=== PATIENT | female | born 1975 | race Caucasian/White ===

== ENCOUNTER 2022-01-06 10:18 | Emergency (ER) | payer SELFPAY ==
[2022-01-06] MEDS ORDERED: Ibuprofen 600 MG TAB ONE (11:33)
[2022-01-06] MEDS ORDERED: Acetaminophen 500 MG TAB ONE (11:34)
[2022-01-06] MEDS ORDERED: HYDROcodone/Acetaminophen 5/325 mg Tablet ONE (11:54)
== END 2022-01-06 12:00 | disposition home or self-care (01) ==
LOC: MADERS 10:18
DX: S63.502A Unspecified sprain of left wrist, initial encounter (principal); M79.89 Other specified soft tissue disorders; E03.9 Hypothyroidism, unspecified; Z79.899 Other long term (current) drug therapy; X50.9XXA Other and unspecified overexertion or strenuous movements or postures, initial encounter

== ENCOUNTER 2024-11-12 17:03 | Emergency (ER) | payer OTHER, SELFPAY ==
[2024-11-12 17:28] LABS: Bilirubin Negative (Negative); Blood, Urine Large (Negative); Glucose, Urine (Dipstick) Negative (Negative); Ketone, Urine Negative (Negative); Leukocyte Small (Negative); Nitrite Negative (Negative); Protein, Urine (Dipstick) 30 mg/dL (Neg-Trace); Specific Gravity, Urine 1.015 (1.005-1.030); Urobilinogen 0.2 mg/dL (Less than 2); pH, Urine 5.5 (5.0-9.0)
[2024-11-12] MEDS ORDERED: Ketorolac Tromethamine 30 MG (1 mL) VIAL ONE (17:28)
[2024-11-12 17:32] LABS: Clarity Hazy (Clear)
[2024-11-12 17:37] LABS: Bacteria/HPF 2+ HPF (None Seen); CAUTI Indications for Culture Pelvic or flank pain; RBC/HPF Greater than 50 HPF (0-3); Squamous Epithelial 0-3 HPF (0-3); WBC/HPF 21-50 HPF (0-3)
[2024-11-12] MEDS ORDERED: Ondansetron PF 4 MG/2 ML Vial ONE (17:37)
[2024-11-12] MEDS ORDERED: Morphine 4 MG/ML VIAL ONE ×3 (17:37→23:13)
[2024-11-12] MEDS ORDERED: Morphine 2 MG/ML VIAL ONE (17:37)
[2024-11-12 17:38] LABS: Urine Culture Reflex Yes Yes
[2024-11-12 17:50] LABS: Pregnancy Test - Urine (BHCG) Negative (Negative); Pregu Control Background? CLEAR/WHITE (CLR/WHITE); Pregu Control Bar Appear? YES (CONTROL BAR); Specific Gravity 1.015 (1.002-1.036)
[2024-11-12 17:57] LABS: #Basophils 0.1 thou/uL (0.0-0.2); #Eosinophils 0.1 thou/uL (0.0-0.7); #Lymphocytes 1.7 thou/uL (1.20-3.40); #Monocytes 0.7 thou/uL (0.11-0.59); #Neutrophils 7.3 thou/uL (1.40-6.50); %Basophils 1.1 % (0.0-1.0); %Eosinophils 0.9 % (0.0-10.0); %Lymphocytes 16.9 % (21.0-51.0); %Monocytes 7.1 % (0.0-10.0); Hematocrit 44.4 % (36.0-47.0); Hemoglobin 13.9 g/dL (12.0-16.0); Mean Corpuscular HGB CONC 31.3 g/dL (32.0-36.0); Mean Corpuscular Hemoglobin 26.1 pg (27.0-31.0); Mean Corpuscular Volume 83.4 fl (78.0-98.0); Mean Platelet Volume 8.6 fL (7.4-10.4); Platelet Count 286 10x3/uL (130-400); RBC Distribution Width 12.1 % (11.5-14.5); Red Blood Cell (RBC) Count 5.33 mill/uL (4.20-5.40); White Blood Cell (WBC) Count 9.8 10x3/uL (4.8-10.8)
[2024-11-12 18:09] LABS: ALT (SGPT) 22 U/L (8-55); AST (SGOT) 18 U/L (5-34); Albumin 3.8 g/dL (3.5-5.0); Alkaline Phosphatase 137 U/L (40-110); Anion Gap 16 mmol/L (10-20); BUN (Urea Nitrogen) 14 mg/dL (9.8-20.1); Bilirubin, Total 0.4 mg/dL (0.2-1.2); Calc. Creatinine Clearance 0 mL/min (70-130); Calcium 9.3 mg/dL (7.8-10.44); Carbon Dioxide 23 mmol/L (22-29); Chloride 107 mmol/L (98-107); Estimated GFR 106; Globulin 3.7 g/dL (2.4-3.5); Glucose 106 mg/dL (70-105); Potassium 3.9 mmol/L (3.5-5.1); Protein, Total 7.5 g/dL (6.0-8.3); Sodium 142 mmol/L (136-145)
[2024-11-12] MEDS ORDERED: cefTRIAXone (ROCEPHIN) 2 GM VIAL ONE (20:44)
[2024-11-12] MEDS ORDERED: Sodium Chloride 0.9% 100 ML ONE (20:45)
[2024-11-13] MEDS ORDERED: Mag-Al 1200 mg/1200 mg/30 ML UDCUP ONE (01:54)
[2024-11-13] MEDS ORDERED: Morphine 4 MG/ML VIAL ONE (02:29)
== END 2024-11-13 02:41 | disposition short-term general hospital (02) ==
LOC: MADERS 17:03
DX: N13.6 Pyonephrosis (principal); E03.9 Hypothyroidism, unspecified; Z79.890 Hormone replacement therapy
CPT/HCPCS: 36415; 74176; 80053; 81001; 81025; 85025; 87040; 87086; 96365; 96375; 96376; J0696; J1885; J2270; J2272; J2405